=== PATIENT | female | born 1975 | race Caucasian/White ===

== ENCOUNTER 2017-11-13 09:22 | Emergency (ER) | payer BC ==
[2017-11-13 10:02] VITALS: BP 127/88
[2017-11-13] MEDS ORDERED: Tetan/Diph/Pertus SYR(Tdap)* 0.5 ML SYR(BOOSTRIX) use SYR IM ONE (10:20)
--- NOTE | 2017-11-13 10:23 | UC ---
Skin Complaint HPI - HPI Summary HPI Summary: PW to right foot 2 days ago on a nail---did have shoes on at time of injury--- patient wishing a tetanus update - History of Current Complaint Chief Complaint: UCGeneralIllness Time Seen by Provider: 11/13/17 10:18 Stated Complaint: STEPPED ON A BILLY NAIL Hx Obtained From: Patient Hx Last Menstrual Period: 11/09/17 ?: No Onset/Duration: Sudden Onset, Lasting Days - 2 Timing: Constant Pain Intensity: 1 Pain Scale Used: 0-10 Numeric Location: Discrete Aggravating Factor(s): Nothing Alleviating Factor(s): Nothing Associated Signs & Symptoms: Positive: Negative - Allergy/Home Medications Allergies/Adverse Reactions: Allergies Allergy/AdvReac Type Severity Reaction Status Date / Time Sulfa (Sulfonamide Allergy Hives Verified 11/13/17 10:02 Antibiotics) Home Medications: Home Medications NK [No Home Medications Reported] 11/13/17 [History Confirmed 11/13/17] Review of Systems Constitutional: Negative Skin: Other - Healed pw to right foot no pain redness swelling tenderness streaking Eyes: Negative ENT: Negative Respiratory: Negative Cardiovascular: Negative Gastrointestinal: Negative Genitourinary: Negative Motor: Negative Neurovascular: Negative Musculoskeletal: Negative Neurological: Negative Psychological: Negative Is Patient Immunocompromised?: No All Other Systems Reviewed And Are Negative: Yes PMH/Surg Hx/FS Hx/Imm Hx Previously Healthy: Yes - Surgical History Surgical History: None - Family History Known Family History: Positive: Unknown - Social History Occupation: Employed Full-time Lives: With Family Alcohol Use: Rare Substance Use Type: None Smoking Status (MU): Light Every Day Tobacco Smoker Type: Cigarettes Amount Used/How Often: 2 cigs day Physical Exam Triage Information Reviewed: Yes Appearance: Well-Appearing, No Pain Distress, Well-Nourished Vital Signs: Initial Vital Signs Temp 97.8 F 11/13/17 09:59 Pulse 76 11/13/17 09:59 Resp 16 11/13/17 09:59 BP 127/88 11/13/17 09:59 Pulse Ox 98 11/13/17 09:59 Vital Signs Reviewed: Yes Eye Exam: Normal Eyes: Positive: Conjunctiva Clear ENT Exam: Normal ENT: Positive: Normal ENT inspection, Hearing grossly normal. Negative: Trismus , Muffled voice, Hoarse voice Dental Exam: Normal Neck exam: Normal Neck: Positive: Supple, Nontender Respiratory Exam: Normal Respiratory: Positive: Chest non-tender, No respiratory distress, No accessory muscle use Cardiovascular Exam: Normal Cardiovascular: Positive: RRR, Pulses Normal, Brisk Capillary Refill Musculoskeletal Exam: Normal Musculoskeletal: Positive: Strength Intact, ROM Intact, No Edema Neurological Exam: Normal Neurological: Positive: Alert, Muscle Tone Normal Psychological Exam: Normal Skin Exam: Normal Skin: Positive: Other - pw to bottome of right foot, no pain or tenderness, no erythema streaking, drainage or evidence of infection Course/Dx - Course Course Of Treatment: Patient's tetanus was updated. Patient was educated to concerns about infection related to puncture wound. Patient denies antibiotics at this time patient advised to soak foot in warm water and observe closely for signs and symptoms of infection and return should any appear - Diagnoses Provider Diagnoses: PW right foot Discharge - Sign-Out/Discharge Documenting (check all that apply): Patient Departure All imaging exams completed and their final reports reviewed: No Studies - Discharge Plan Condition: Stable Disposition: HOME Patient Education Materials: Puncture Wound (ED), Acute Wound Care (ED), Warm Compress or Soak (ED) Referrals: Kevin Ng MD [Primary Care Provider] - If Needed - Billing Disposition and Condition Condition: STABLE Disposition: Home
== END 2017-11-13 10:30 | disposition home or self-care (01) ==
LOC: UCEAST 09:22
DX: S91.331A Puncture wound without foreign body, right foot, initial encounter (principal); W22.09XA Striking against other stationary object, initial encounter; Y92.9 Unspecified place or not applicable
CPT/HCPCS: 90471; 90715; 99211; G0463